=== PATIENT | female | born 1995 | race Two or more races ===

== ENCOUNTER 2019-02-15 10:27 | Observation (INO) | payer OTHER ==
[~2019-02-15] VITALS: Ht 166.4 cm; Wt 82.6 kg
[2019-02-15] MEDS ORDERED: IV RINGERS,LACTATED 1000ML 1,000 ML IV PRN (11:15)
[2019-02-15 11:35] LABS: BILIRUBIN,URINE NEGATIVE (NEG); CLARITY,URINE CLEAR; COLOR,URINE YELLOW; NITRITE,URINE NEGATIVE (NEG); PH,URINE 7.5; PROTEIN,URINE NEGATIVE (NEG-TRACE); UROBILINOGEN,URINE 0.2 mg/dL (0.2 mg/dL)
[2019-02-15 11:41] LABS: BARBITURATES NEG (NEG); BENZODIAZEPINES NEG (NEG); CANNABINOIDS POS (NEG); COCAINE NEG (NEG); METHADONE NEG (NEG); OPIATES NEG (NEG); PHENCYCLIDINE NEG (NEG)
[2019-02-15 11:42] LABS: AMPHETAMINE/METHAMPHETAMINE NEG (NEG)
[2019-02-15 11:49] LABS: BACTERIA,URINE 0 /HPF (0-FEW); RBC,URINE 0 /HPF (0-2); SQUAMOUS EPITHELIAL CELL,UR MOD /LPF; WBC,URINE OCC /HPF (0-4)
== END 2019-02-15 12:50 | disposition home or self-care (01) ==
LOC: 3 SO LND 10:27
PROVIDERS: ADMIT Obstetrics & Gynecology; ATTEND Obstetrics & Gynecology
DX: O26.892 Other specified pregnancy related conditions, second trimester (principal); R10.9 Unspecified abdominal pain; R53.81 Other malaise; Z3A.20 20 weeks gestation of pregnancy
CPT/HCPCS: 80307; 81001; 87086; G0378; G0379

== ENCOUNTER → 2019-02-25 | Outpatient (CLI) | payer OTHER ==
--- NOTE | 2019-02-25 15:32 | RAD ---
Indication: .. Evaluate for size and dates. TECHNIQUE: Ultrasound OB greater than equal to 14 weeks. COMPARISON: None FINDINGS: Cervix is closed and measures 5.7 cm in length. Single intrauterine seen. The biparietal diameter measures 5.33 cm corresponding to gestation age of 22 weeks 1 day. Head circumference measures 19.99 cm corresponding to gestation age of 22 weeks 1 day. Abdominal circumference measures 16.24 cm corresponding to gestation age of 21 weeks 2 days. Femoral length measures 3.69 cm corresponding to gestation age of 21 weeks 5 days. Estimated weight of 436 g. Heart rate 152 bpm. Left and right ventricular outflow tracts are seen. Arms are seen. Placenta lies anterior in position. Nose and lips are seen. C-spine, T-spine and L-spine are seen. Diaphragm seen. Cord insertion seen. Three-vessel cord noted. Stomach, kidneys and bladder seen. Four-chamber heart noted. Breech position of the time of scanning. Normal amniotic fluid. IMPRESSION: Single viable live intrauterine corresponding to estimated gestation age of 21 weeks 6 days and due date of 07/02/2019. Electronically signed by: Davon Beltran DO (02/25/2019 3:29 PM) [facility]
== END | disposition home or self-care (01) ==
LOC: EDUNIT# 02-20 10:00 → US 14:52
PROVIDERS: ATTEND Obstetrics & Gynecology
DX: O26.842 Uterine size-date discrepancy, second trimester (principal); Z3A.21 21 weeks gestation of pregnancy
CPT/HCPCS: 76805

== ENCOUNTER 2019-04-15 13:03 | Observation (INO) | payer OTHER ==
[2019-04-15] MEDS ORDERED: IV RINGERS,LACTATED 1000ML 1,000 ML IV PRN (13:15)
[2019-04-15 13:37] LABS: BILIRUBIN,URINE SMALL (NEG); CLARITY,URINE CLEAR; COLOR,URINE AMBER; NITRITE,URINE NEGATIVE (NEG); PROTEIN,URINE NEGATIVE (NEG-TRACE)
[2019-04-15 13:49] LABS: BACTERIA,URINE MODERATE /HPF (0-FEW); SQUAMOUS EPITHELIAL CELL,UR MOD /LPF
[2019-04-15 13:50] LABS: RBC,URINE OCC /HPF (0-2)
== END 2019-04-15 16:14 | disposition home or self-care (01) ==
LOC: 3 SO LND 13:03
PROVIDERS: ADMIT Obstetrics & Gynecology; ATTEND Obstetrics & Gynecology
DX: O36.8130 Decreased fetal movements, third trimester, not applicable or unspecified (principal); O62.9 Abnormality of forces of labor, unspecified; O99.89 Other specified diseases and conditions complicating pregnancy, childbirth and the puerperium; M54.9 Dorsalgia, unspecified; Z3A.28 28 weeks gestation of pregnancy
CPT/HCPCS: 81001; 87086; G0378; G0379

== ENCOUNTER 2019-05-08 10:53 | Observation (INO) | payer OTHER ==
[2019-05-08] MEDS ORDERED: IV RINGERS,LACTATED 1000ML 1,000 ML IV SCH (10:54)
[2019-05-08 11:35] LABS: BILIRUBIN,URINE NEGATIVE (NEG); CLARITY,URINE CLEAR; COLOR,URINE YELLOW; NITRITE,URINE NEGATIVE (NEG); PH,URINE 6.5; PROTEIN,URINE NEGATIVE (NEG-TRACE); UROBILINOGEN,URINE 0.2 mg/dL (0.2 mg/dL)
[2019-05-08 12:01] LABS: SQUAMOUS EPITHELIAL CELL,UR MANY /LPF
[2019-05-08 12:02] LABS: BACTERIA,URINE MODERATE /HPF (0-FEW); RBC,URINE 0 /HPF (0-2)
[2019-05-08 12:19] LABS: AMNIO PT NEGATIVE
--- NOTE | 2019-05-08 13:00 | RAD ---
EXAM: biophysical profile. HISTORY: Leaking fluid. weight and JANIE assessment TECHNIQUE: Sonographic imaging of a gravid uterus was performed. COMPARISON: 02/25/2019. FINDINGS: There is a single intrauterine fetus in cephalic presentation with a normal heart rate of 149 bpm. The amniotic fluid index is normal at 12.6 cm. The cervix is not seen. There is an anterior placenta. There is no evidence of placenta previa. The biparietal diameter is 8.00 cm, corresponding with 32 weeks and 1 day. The head circumference is 29.99 cm, corresponding with 33 weeks and 2 days. The abdominal circumference is 28.17 cm, corresponding with 32 weeks and 1 day. The femoral length is 6.2 6:00 PM, corresponding with 32 weeks and 3 days. The estimated gestational age based on my ultrasound measurements is 32 weeks and 4 days and the estimated weight is 1959 g. This corresponds with the 47th percentile for an estimated gestational age of 32 weeks and 1 day based on LMP. The estimated due date based on ultrasound findings is 06/29/2019. There is normal breathing movement, body movement and tone and there is a normal anatomic fluid volume. This corresponds with a biophysical profile 8/8. IMPRESSION: 1. Single intrauterine fetus with an estimated gestational age based on ultrasound measurements of 32 weeks and 4 days. The estimated weight is at the 47th percentile. 2. Normal biophysical profile of 8/8. 3. Normal JANIE of 12.6 cm. Electronically signed by: Maria Esther Mojica MD (05/08/2019 12:57 PM) [facility]
== END 2019-05-08 12:45 | disposition home or self-care (01) ==
LOC: 3 SO LND 10:53
PROVIDERS: ADMIT Obstetrics & Gynecology; ATTEND Obstetrics & Gynecology
DX: O42.913 Preterm premature rupture of membranes, unspecified as to length of time between rupture and onset of labor, third trimester (principal); Z3A.32 32 weeks gestation of pregnancy
CPT/HCPCS: 36415; 76819; 81001; 84112; 87086; G0378; G0379

== ENCOUNTER 2019-09-23 12:43 | Emergency (ER) | payer OTHER ==
[~2019-09-23] VITALS: Ht 162.6 cm; Wt 91.0 kg
[~2019-09-23 12:43] MED LIST: IBUP-1027 PO
--- NOTE | 2019-09-23 13:14 | PHYS DOC ---
Adult General Chief Complaint Chief Complaint: RECTAL BLEED [facility] HPI Patient is a 24 year old female who presents with rectal bleeding this been ongoing since June when she delivered a baby. States when she has a bowel movement painful and then afterward she has bright red blood in the toilet. He describes it as a moderate amount of blood. She has not followed up with Dr. White who delivered her baby. She also states she's been having some lower back pain and states rates this as 9 out of 10 in severity. Review of Systems Review of Systems Constitutional: Denies fever or chills [] Eyes: Denies change in visual acuity, redness, or eye pain [] HENT: Denies nasal congestion or sore throat [] Respiratory: Denies cough or shortness of breath [] Cardiovascular: No additional information not addressed in HPI [] GI: Reports rectal bleeding and painful BM, Denies abdominal pain, nausea, vomiting, or diarrhea [] : Denies dysuria or hematuria [] Musculoskeletal: Reports low back pain. Integument: Denies rash or skin lesions [] Neurologic: Denies headache, focal weakness or sensory changes [] Endocrine: Denies polyuria or polydipsia [] Complete systems were reviewed and found to be within normal limits, except as documented in this note. Current Medications Current Medications Current Medications Medications (Trade) Dose Ordered Sig/Judie Start Time Stop Time Status Last Admin Dose Admin Ketorolac Tromethamine (Toradol 15mg Vial) 10 mg 1X STAT 09/23/19 13:06 09/23/19 13:10 DC 09/23/19 13:27 10 MG Sodium Chloride 1,000 ml @ 1,000 mls/hr 1X STAT 09/23/19 13:25 09/23/19 14:24 09/23/19 13:28 1,000 MLS/HR Allergies Allergies Allergies Coded Allergies Type Severity Reaction Last Updated Verified Penicillins Allergy Intermediate 02/15/19 Yes amoxicillin Allergy Intermediate Rash 02/15/19 Yes Physical Exam Physical Exam Constitutional: Well developed, well nourished, no acute distress, non-toxic appearance. [] HENT: Normocephalic, atraumatic, bilateral external ears normal, oropharynx moist, no oral exudates, nose normal. [] Eyes: PERRLA, EOMI, conjunctiva normal, no discharge. [] Neck: Normal range of motion, no tenderness, supple, no stridor. [] Cardiovascular:Heart rate regular rhythm, no murmur [] Lungs & Thorax: Bilateral breath sounds clear to auscultation [] Abdomen: Bowel sounds normal, soft, no tenderness, no masses, no pulsatile masses. [] Skin: Warm, dry, no erythema, no rash. [] Back: Tenderness to left lower back. Extremities: No tenderness, no cyanosis, no clubbing, ROM intact, no edema. [] Neurologic: Alert and oriented X 3, normal motor function, normal sensory function, no focal deficits noted. [] Psychologic: Affect normal, judgement normal, mood normal. [] Rectal exam: No hemorrhoids or blood noted. Current Patient Data Vital Signs Vital Signs Date Time Temp Pulse Resp B/P (MAP) Pulse Ox O2 Delivery O2 Flow Rate FiO2 09/23/19 12:55 98.1 95 16 154/64 (94) 98 Room Air 98.1 Lab Values Laboratory Tests Test 09/23/19 13:04 09/23/19 13:15 09/23/19 13:25 Stool Occult Blood Positive (NEG) White Blood Count 7.3 x10^3/uL (4.0-11.0) Red Blood Count 4.34 x10^6/uL (3.50-5.40) Hemoglobin 12.1 g/dL (12.0-15.5) Hematocrit 36.6 % (36.0-47.0) Mean Corpuscular Volume 84 fL (79-100) Mean Corpuscular Hemoglobin 28 pg (25-35) Mean Corpuscular Hemoglobin Concent 33 g/dL (31-37) Red Cell Distribution Width 13.0 % (11.5-14.5) Platelet Count 309 x10^3/uL (140-400) Neutrophils (%) (Auto) 69 % (31-73) Lymphocytes (%) (Auto) 22 % (24-48) L Monocytes (%) (Auto) 8 % (0-9) Eosinophils (%) (Auto) 1 % (0-3) Basophils (%) (Auto) 1 % (0-3) Neutrophils # (Auto) 5.0 x10^3/uL (1.8-7.7) Lymphocytes # (Auto) 1.6 x10^3/uL (1.0-4.8) Monocytes # (Auto) 0.6 x10^3/uL (0.0-1.1) Eosinophils # (Auto) 0.1 x10^3/uL (0.0-0.7) Basophils # (Auto) 0.1 x10^3/uL (0.0-0.2) Sodium Level 137 mmol/L (136-145) Potassium Level 4.0 mmol/L (3.5-5.1) Chloride Level 103 mmol/L (98-107) Carbon Dioxide Level 26 mmol/L (21-32) Anion Gap 8 (6-14) Blood Urea Nitrogen 9 mg/dL (7-20) Creatinine 0.5 mg/dL (0.6-1.0) L Estimated GFR (Cockcroft-Gault) 152.9 BUN/Creatinine Ratio 18 (6-20) Glucose Level 97 mg/dL (70-99) Calcium Level 8.6 mg/dL (8.5-10.1) Total Bilirubin 0.3 mg/dL (0.2-1.0) Aspartate Amino Transferase (AST) 18 U/L (15-37) Alanine Aminotransferase (ALT) 20 U/L (14-59) Alkaline Phosphatase 70 U/L (46-116) Total Protein 6.6 g/dL (6.4-8.2) Albumin 3.1 g/dL (3.4-5.0) L Albumin/Globulin Ratio 0.9 (1.0-1.7) L Urine Collection Type Void Urine Color Yellow Urine Clarity Clear Urine pH 6.0 Urine Specific [place] 1.010 Urine Protein Negative mg/dL (NEG-TRACE) Urine Glucose (UA) Negative mg/dL (NEG) Urine Ketones (Stick) Negative mg/dL (NEG) Urine Blood Negative (NEG) Urine Nitrite Negative (NEG) Urine Bilirubin Negative (NEG) Urine Urobilinogen Dipstick 0.2 mg/dL (0.2 mg/dL) Urine Leukocyte Esterase Trace (NEG) Urine RBC 0 /HPF (0-2) Urine WBC 5-10 /HPF (0-4) Urine Squamous Epithelial Cells Few /LPF Urine Bacteria Few /HPF (0-FEW) Urine Mucus Slight /LPF Laboratory Tests 09/23/19 13:15 Laboratory Tests 09/23/19 13:15 EKG EKG [] Radiology/Procedures Radiology/Procedures [] Course & Med Decision Making Course & Med Decision Making Pertinent Labs and Imaging studies reviewed. (See chart for details) Will get fecal occult blood, labs, and UA. Labs are unremarkable. H/H is stable and patient has been bleeding since June. Fecal Occult blood is +. Will have follow up with Dr. White. Sana Disclaimer Sana Disclaimer This electronic medical record was generated, in whole or in part, using a voice recognition dictation system. Departure Departure Impression: Primary Impression: Rectal bleeding Disposition: HOME, SELF-CARE Condition: STABLE Referrals: NO PCP (PCP) ORLANDO WHITE Jr, MD Patient Instructions: Rectal Bleeding Additional Instructions: Thank you for visiting [facility]. We appreciate you trusting us with your care. If any additional problems come up don't hesitate to return to visit us. Please follow up with your primary care provider so they can plan additional care if needed and know about the problem that you had. If symptoms worsen come back to the Emergency Department. Any concerning symptoms that start such as chest pain, shortness of air, weakness or numbness on one side of the body, running high fevers or any other concerning symptoms return to the ER. Please follow-up with [employer]. LAZ QUIROS APRN Sep 23, 2019 13:14
[2019-09-23] MEDS: KETOROLAC 15 MG/ML VIAL. IV STA (13:27)
[2019-09-23] MEDS: IV NORMAL SALINE 1000ML BAG 1,000 ML IV STA (13:28)
[2019-09-23 13:29] LABS: FECAL OB PT POSITIVE (NEG)
[2019-09-23 13:30] LABS: BASO # 0.1 x10^3/uL (0.0-0.2); BASO % 1 % (0-3); EOS # 0.1 x10^3/uL (0.0-0.7); EOS % 1 % (0-3); HEMATOCRIT 36.6 % (36.0-47.0); HEMOGLOBIN 12.1 g/dL (12.0-15.5); LYMPH # 1.6 x10^3/uL (1.0-4.8); LYMPH % 22 % (24-48); MEAN CORPUSCULAR HEMOGLOBIN 28 pg (25-35); MEAN CORPUSCULAR HGB CONC 33 g/dL (31-37); MEAN CORPUSCULAR VOLUME 84 fL (79-100); MONO # 0.6 x10^3/uL (0.0-1.1); MONO % 8 % (0-9); NEUT % 69 % (31-73); PLATELET COUNT 309 x10^3/uL (140-400); RED BLOOD COUNT 4.34 x10^6/uL (3.50-5.40); WHITE BLOOD COUNT 7.3 x10^3/uL (4.0-11.0)
[2019-09-23 13:31] VITALS: BP 132/61
[2019-09-23 13:39] LABS: BILIRUBIN,URINE NEGATIVE (NEG); CLARITY,URINE CLEAR; COLOR,URINE YELLOW; NITRITE,URINE NEGATIVE (NEG); PROTEIN,URINE NEGATIVE (NEG-TRACE); UROBILINOGEN,URINE 0.2 mg/dL (0.2 mg/dL)
[2019-09-23 13:45] LABS: CALCIUM 8.6 mg/dL (8.5-10.1); CREATININE 0.5 mg/dL (0.6-1.0); GFR 152.9
[2019-09-23 13:51] LABS: ALBUMIN 3.1 g/dL (3.4-5.0); ALBUMIN/GLOBULIN RATIO 0.9 (1.0-1.7); TOTAL BILIRUBIN 0.3 mg/dL (0.2-1.0); TOTAL PROTEIN 6.6 g/dL (6.4-8.2)
[2019-09-23 13:51] LABS: RBC,URINE 0 /HPF (0-2)
[2019-09-23 13:52] LABS: BACTERIA,URINE FEW /HPF (0-FEW); SQUAMOUS EPITHELIAL CELL,UR FEW /LPF
== END 2019-09-23 13:57 | disposition home or self-care (01) ==
LOC: ER 12:43
DX: K62.5 Hemorrhage of anus and rectum (principal); M54.5 Low back pain; Z88.0 Allergy status to penicillin; Z88.1 Allergy status to other antibiotic agents
CPT/HCPCS: 36415; 80053; 81001; 82274; 85025; 87086; 96374; 99283; J1885; J7030